=== PATIENT | female | born 1935 | race African-American/Black ===

== ENCOUNTER 2018-08-14 07:48 | Inpatient (IN) ==
[2018-08-10 13:57] LABS: Basophils % 0.6 % (0.0-0.8); Eosinophils # 0.1 10*3/uL (0.0-0.87); Eosinophils % 0.7 % (0.00-10.9); Hematocrit 42.3 VOL% (35.7-47.0); Hemoglobin 12.8 GM/DL (12.0-16.0); Immature Granulocytes % 0.1 %; Immature Granulocytes Absolute 0.01 #; Lymphocytes # 1.9 10*3/uL (1.4-4.0); Lymphocytes % 27.1 % (21.3-54.2); Mean Corpuscular HGB Conc 30.3 GM/DL (32-36); Mean Corpuscular Hemoglobin 25 PG (27-34); Mean Corpuscular Volume 83.6 FL (87-102); Monocytes # 0.7 10*3/uL (0.11-0.8); Neutrophils # 4.3 10*3/uL (1.4-7.4); Neutrophils % 61.5 % (38.7-73.9); Platelet Count 399 T/CUMM (130-400); Red Blood Count 5.06 MC/CUMM (3.8-5.5); Red Cell Distribution Width 14.9 % (9.3-17.3)
[2018-08-10 14:24] LABS: Calcium 8.6 MG/DL (8.5-10.1); Osmolality,Calculated 276.4 MOS/KG (273-304); Potassium 4.2 MMOL/L (3.5-5.1)
[~2018-08-14 07:48] MED LIST: ERTAPENEM 1,000 MG in SODIUM CHLORIDE 0.9% 100 ML IV ONE; LACTATED RINGERS 1,000 ML IV SCH
[2018-08-14] MEDS ORDERED: ALVIMOPAN 12 MG CAPSULE ONE (08:30)
[2018-08-14] MEDS ORDERED: ERTAPENEM 1,000 MG VIAL ONE (08:30)
[2018-08-14] MEDS ORDERED: ALVIMOPAN 12 MG CAPSULE PO ONE (09:00)
[2018-08-14] MEDS ORDERED: INDOCYANINE GREEN 25 MG VIAL IV ONE (12:41)
[2018-08-14] MEDS ORDERED: LABETALOL 20 MG/4 ML SYRINGE IV ONE (14:36)
[2018-08-14] MEDS ORDERED: METOCLOPRAMIDE 10 MG/2 ML VIAL ONE (14:36)
[2018-08-14] MEDS ORDERED: ONDANSETRON 4 MG/2 ML VIAL IV PRN ×2 (14:40→15:31)
[2018-08-14] MEDS: HYDROmorphone 2 MG/1 ML VIAL IV PRN ×4 (14:47→15:15)
[2018-08-14] MEDS ORDERED: LACTATED RINGERS 1,000 ML IV SCH (15:00)
[2018-08-14] MEDS ORDERED: PROMETHAZINE 25 MG/1 ML VIAL IM PRN (15:31)
[2018-08-14] MEDS: LACTATED RINGERS 1,000 ML IV SCH ×2 (15:50→23:36)
[2018-08-14 16:17] LABS: Calcium 8.6 MG/DL (8.5-10.1); Osmolality,Calculated 279.4 MOS/KG (273-304); Potassium 4.7 MMOL/L (3.5-5.1)
[2018-08-14 16:24] LABS: Basophils % 0.2 % (0.0-0.8); Eosinophils % 0.2 % (0.00-10.9); Hemoglobin 12.6 GM/DL (12.0-16.0); Immature Granulocytes % 0.3 %; Immature Granulocytes Absolute 0.03 #; Lymphocytes # 1.8 10*3/uL (1.4-4.0); Lymphocytes % 15.3 % (21.3-54.2); Mean Corpuscular Hemoglobin 25 PG (27-34); Mean Corpuscular Volume 84.5 FL (87-102); Mean Platelet Volume 9.7 FL (9.6-12.0); Monocytes # 0.9 10*3/uL (0.11-0.8); Monocytes % 8.2 % (1.7-12.7); Neutrophils # 8.7 10*3/uL (1.4-7.4); Neutrophils % 75.8 % (38.7-73.9); Platelet Count 419 T/CUMM (130-400); Red Blood Count 4.97 MC/CUMM (3.8-5.5); Red Cell Distribution Width 14.5 % (9.3-17.3); White Blood Count 11.5 T/CUMM (4-12)
[2018-08-14] MEDS: KETOROLAC 15 MG/1 ML VIAL IV SCH ×2 (17:04→23:37)
[2018-08-14] MEDS: SIMVASTATIN 40 MG TABLET PO SCH (21:05)
[2018-08-14] MEDS: ALVIMOPAN 12 MG CAPSULE PO SCH (21:05)
[2018-08-15 04:21] LABS: Basophils % 0.1 % (0.0-0.8); Hematocrit 36.5 VOL% (35.7-47.0); Hemoglobin 11.3 GM/DL (12.0-16.0); Immature Granulocytes % 0.6 %; Immature Granulocytes Absolute 0.08 #; Lymphocytes # 1.7 10*3/uL (1.4-4.0); Mean Corpuscular Hemoglobin 26 PG (27-34); Mean Corpuscular Volume 82.6 FL (87-102); Mean Platelet Volume 9.5 FL (9.6-12.0); Monocytes # 0.9 10*3/uL (0.11-0.8); Monocytes % 6.7 % (1.7-12.7); Neutrophils # 11.4 10*3/uL (1.4-7.4); Neutrophils % 80.6 % (38.7-73.9); Platelet Count 395 T/CUMM (130-400); Red Blood Count 4.42 MC/CUMM (3.8-5.5); Red Cell Distribution Width 14.6 % (9.3-17.3); White Blood Count 14.1 T/CUMM (4-12)
[2018-08-15 04:36] LABS: Osmolality,Calculated 281.4 MOS/KG (273-304); Potassium 4.6 MMOL/L (3.5-5.1)
[2018-08-15] MEDS: KETOROLAC 15 MG/1 ML VIAL IV SCH (05:16)
[2018-08-15] MEDS: LACTATED RINGERS 1,000 ML IV SCH ×3 (07:56→22:27)
[2018-08-15] MEDS ORDERED: LACTATED RINGERS 1,000 ML IV ONE (08:47)
[2018-08-15 10:27] LABS: Apearance,Urine Slightly Hazy (Clear); Bilirubin,Urine Negative (Negative); Blood, Urine Moderate mg/dL (Negative); Glucose,Urine (UA) 50 mg/dL (Negative); Ketones,Urine Negative (Negative); Mucus,Urine Occasional /LPF (Occasional); Nitrite,Urine Negative (Negative); Protein,Urine Negative; RBC,Urine 3 /HPF (0-4); Squamous Epithelial Cell,Urine Occasional /HPF (0-10); Urine Color Yellow (Yellow); Urine Specific Gravity 1.016 (1.001-1.035); Urine Urobilinogen < 2.0 EU/DL (0.2-1.0); WBC,Urine 1 /HPF (0-6)
[2018-08-15] MEDS: ENOXAPARIN 40 MG/0.4 ML SYRINGE SUBCUT SCH (11:21)
[2018-08-15] MEDS: ALVIMOPAN 12 MG CAPSULE PO SCH (11:21)
[2018-08-15] MEDS ORDERED: LACTATED RINGERS 500 ML IV ONE ×2 (16:06→21:21)
[2018-08-15] MEDS: HYDROmorphone 2 MG/1 ML VIAL IV PRN (19:30)
[2018-08-15] MEDS: SIMVASTATIN 40 MG TABLET PO SCH (20:19)
[2018-08-16] MEDS: LACTATED RINGERS 1,000 ML IV SCH ×5 (02:29→21:47)
[2018-08-16] MEDS ORDERED: DILTIAZEM 25 MG/5 ML VIAL IV ONE ×2 (04:42→05:00)
[2018-08-16] MEDS ORDERED: dilTIAZem Drip 125 MG/125 ML PREMIX IV SCH (05:00)
[2018-08-16 05:26] LABS: Calcium 7.8 MG/DL (8.5-10.1); Osmolality,Calculated 279.3 MOS/KG (273-304); Potassium 4.4 MMOL/L (3.5-5.1)
[2018-08-16 05:27] LABS: Basophils % 0.3 % (0.0-0.8); Eosinophils % 0.4 % (0.00-10.9); Hematocrit 35.1 VOL% (35.7-47.0); Hemoglobin 10.5 GM/DL (12.0-16.0); Immature Granulocytes % 0.6 %; Immature Granulocytes Absolute 0.06 #; Lymphocytes # 1.3 10*3/uL (1.4-4.0); Mean Corpuscular HGB Conc 29.9 GM/DL (32-36); Mean Corpuscular Hemoglobin 25 PG (27-34); Mean Corpuscular Volume 84.6 FL (87-102); Mean Platelet Volume 10.6 FL (9.6-12.0); Monocytes # 0.6 10*3/uL (0.11-0.8); Monocytes % 5.8 % (1.7-12.7); Neutrophils # 8.7 10*3/uL (1.4-7.4); Neutrophils % 80.9 % (38.7-73.9); Platelet Count 237 T/CUMM (130-400); Red Blood Count 4.15 MC/CUMM (3.8-5.5); Red Cell Distribution Width 14.7 % (9.3-17.3); White Blood Count 10.7 T/CUMM (4-12)
[2018-08-16 06:12] LABS: Troponin I 0.331 NG/ML (0.00-0.045)
[2018-08-16] MEDS ORDERED: FUROSEMIDE 20 MG/2 ML VIAL IV ONE (07:00)
[2018-08-16] MEDS: ENOXAPARIN 40 MG/0.4 ML SYRINGE SUBCUT SCH (07:43)
[2018-08-16] MEDS: METOPROLOL TARTRATE 25 MG TABLET PO SCH ×2 (15:39→21:46)
[2018-08-16] MEDS: TAMSULOSIN 0.4 MG CAPSULE PO SCH (18:08)
[2018-08-16] MEDS: SIMVASTATIN 40 MG TABLET PO SCH (21:46)
[2018-08-17] MEDS: HYDROmorphone 2 MG/1 ML VIAL IV PRN (00:15)
[2018-08-17 05:12] LABS: Calcium 8.2 MG/DL (8.5-10.1); Osmolality,Calculated 279.3 MOS/KG (273-304); Potassium 4.3 MMOL/L (3.5-5.1)
[2018-08-17 05:19] LABS: Basophils % 0.2 % (0.0-0.8); Eosinophils # 0.2 10*3/uL (0.0-0.87); Eosinophils % 1.7 % (0.00-10.9); Hematocrit 35.2 VOL% (35.7-47.0); Hemoglobin 10.7 GM/DL (12.0-16.0); Immature Granulocytes % 0.3 %; Immature Granulocytes Absolute 0.03 #; Lymphocytes # 1.9 10*3/uL (1.4-4.0); Lymphocytes % 20.5 % (21.3-54.2); Mean Corpuscular HGB Conc 30.4 GM/DL (32-36); Mean Corpuscular Hemoglobin 26 PG (27-34); Mean Corpuscular Volume 84.2 FL (87-102); Mean Platelet Volume 9.5 FL (9.6-12.0); Monocytes # 0.5 10*3/uL (0.11-0.8); Monocytes % 5.3 % (1.7-12.7); Neutrophils # 6.7 10*3/uL (1.4-7.4); Platelet Count 344 T/CUMM (130-400); Red Blood Count 4.18 MC/CUMM (3.8-5.5); Red Cell Distribution Width 14.5 % (9.3-17.3); White Blood Count 9.3 T/CUMM (4-12)
[2018-08-17 05:58] LABS: Troponin I 0.242 NG/ML (0.00-0.045)
[2018-08-17] MEDS: TAMSULOSIN 0.4 MG CAPSULE PO SCH (08:50)
[2018-08-17] MEDS: METOPROLOL TARTRATE 25 MG TABLET PO SCH ×2 (08:50→14:46)
[2018-08-17] MEDS: ENOXAPARIN 40 MG/0.4 ML SYRINGE SUBCUT SCH (08:50)
[2018-08-17] MEDS ORDERED: APIXABAN 5 MG TABLET PO SCH (13:00)
[2018-08-17 13:39] VITALS: BP 97/49
[2018-08-17] MEDS ORDERED: METOPROLOL TARTRATE 25 MG TABLET PO SCH (21:00)
== END 2018-08-17 18:05 | disposition home or self-care (01) | DRG 330 ==
LOC: N.OR 07:48 → N.SDSINP 07:49 → N.3E 15:30 → N.ICU 08-15 09:31
PROVIDERS: ADMIT Surgery; ATTEND Surgery